=== PATIENT | male | born 1955 | race Caucasian/White ===

== ENCOUNTER 2022-05-26 07:57 | Inpatient (IN) | payer MEDICARE, MEDICAID ==
[~2022-05-26] VITALS: Ht 170.2 cm; Wt 73.5 kg
[2022-05-26] MEDS ORDERED: insulin (08:00)
[2022-05-26] MEDS ORDERED: aspirin (08:00)
[2022-05-26 08:54] LABS: CHLORIDE 103 mEq/L (98-107)
[2022-05-26 09:19] LABS: BASOPHILS % 0.4 % (0.0-2.0); HEMATOCRIT. 37.8 % (42.0-52.0); HEMOGLOBIN. 12.7 g/dL (14.0-18.0); LYMPHOCYTES % 29.5 % (20.0-50.0); MEAN CORPUSCULAR HEMOGLOBIN 30.7 pg (28.0-32.0); MEAN CORPUSCULAR VOLUME 91.4 fL (80.0-94.0); MEAN PLATELET VOLUME 7.7 fl (7.4-10.4); NEUTROPHILS % 63.1 % (40.0-76.0); PLATELET 209 x1000/uL (130-400); RED BLOOD CELL COUNT 4.14 mill/uL (4.7-6.1); RED CELL DISTRIBUTION WIDTH 13.8 % (11.6-14.6)
[2022-05-26] MEDS ORDERED: ONDANSETRON HCL 4MG/2ML INJ IV PRN (14:15)
[2022-05-26] MEDS ORDERED: BLOOD SUGAR DIAGNOSTIC STRIP TEST SCH (17:00)
[2022-05-26] MEDS: ACETAMINOPHEN 325MG TABLET PO PRN ×2 (17:15→23:21)
[2022-05-26] MEDS ORDERED: DEXTROSE 50% WATER 50ML SYRINGE IV PRN (19:00)
[2022-05-26 20:00] VITALS: BP_SYST 132; BP_SYST 136; BP_DIAS 60; BP_DIAS 81
[2022-05-26] MEDS: INSULIN LISPRO 100 UNITS/ML SUBCUT SCH (21:00)
[2022-05-26] MEDS: BLOOD SUGAR DIAGNOSTIC STRIP TEST SCH (21:00)
[2022-05-27] VITALS: BP 126/65
[2022-05-27 04:00] VITALS: BP 127/71
[2022-05-27 08:00] VITALS: BP 115/63
[2022-05-27] MEDS: BLOOD SUGAR DIAGNOSTIC STRIP TEST SCH ×4 (08:22→21:00)
[2022-05-27] MEDS: INSULIN LISPRO 100 UNITS/ML SUBCUT SCH ×4 (08:25→22:41)
[2022-05-27] MEDS: ACETAMINOPHEN 325MG TABLET PO PRN (09:53)
[2022-05-27 12:00] VITALS: BP 117/65
[2022-05-27] MEDS: CARVEDILOL 3.125 MG TABLET PO SCH ×2 (15:26→22:40)
[2022-05-27] MEDS: LOSARTAN POTASSIUM 25 MG TABLET PO SCH (15:26)
[2022-05-27 16:00] VITALS: BP_SYST 116; BP_SYST 121; BP_DIAS 66; BP_DIAS 71
[2022-05-27 16:38] LABS: CLARITY URINE CLEAR (CLEAR); COLOR URINE YELLOW (YELLOW); KETONES URINE NEGATIVE (NEGATIVE); LEUKOCYTE ESTERASE URINE NEGATIVE (NEGATIVE); NITRITE URINE NEGATIVE (NEGATIVE); OCCULT BLOOD URINE NEGATIVE (NEGATIVE); PH URINE 7.5 (4.5-8.0); PROTEIN URINE NEGATIVE (NEGATIVE); SPECIFIC GRAVITY URINE 1.004 (1.005-1.030); UROBILINOGEN URINE 0.2 E.U./dL (0.2-1.0)
[2022-05-27 17:47] LABS: *AMPHETAMINES SCREEN URINE NEGATIVE (NEGATIVE); *BARBITURATES SCREEN URINE NEGATIVE (NEGATIVE); *BENZODIAZEPINES SCREEN URINE NEGATIVE (NEGATIVE); *COCAINE SCREEN URINE NEGATIVE (NEGATIVE); CANNABINOID URINE SCREEN NEGATIVE (NEGATIVE); METHADONE URINE SCREEN NEGATIVE (NEGATIVE); OPIATES URINE SCREEN NEGATIVE (NEGATIVE); PHENCYCLIDINE URINE SCREEN NEGATIVE (NEGATIVE)
[2022-05-27 20:00] VITALS: BP 130/64
[2022-05-28] VITALS: BP 122/83
[2022-05-28 04:00] VITALS: BP 119/88
[2022-05-28] MEDS: BLOOD SUGAR DIAGNOSTIC STRIP TEST SCH ×2 (07:56→12:41)
[2022-05-28] MEDS: INSULIN LISPRO 100 UNITS/ML SUBCUT SCH ×2 (07:57→12:46)
[2022-05-28 08:00] VITALS: BP 124/68
[2022-05-28] MEDS: LOSARTAN POTASSIUM 25 MG TABLET PO SCH (09:15)
[2022-05-28] MEDS: CARVEDILOL 3.125 MG TABLET PO SCH (09:15)
[2022-05-28 12:00] VITALS: BP 148/70
[2022-05-28 14:04] VITALS: BP 148/70
== END 2022-05-28 14:45 | disposition home or self-care (01) | DRG 48 ==
LOC: ER 07:57 → 7WST 12:40
PROVIDERS: ADMIT Internal Medicine; ATTEND Internal Medicine
DX: G90.8 Other disorders of autonomic nervous system (principal); I11.0 Hypertensive heart disease with heart failure; I95.9 Hypotension, unspecified; I50.22 Chronic systolic (congestive) heart failure; E11.9 Type 2 diabetes mellitus without complications; Z20.822 Contact with and (suspected) exposure to COVID-19; Z79.82 Long term (current) use of aspirin
CPT/HCPCS: 36415; 71045; 80053; 80305; 81003; 82962; 83036; 83880; 84484; 85025; 87426; 93005; 93306; 93880; 99285; J1815; J2405